=== PATIENT | male | born 2000 | race Caucasian/White ===

== ENCOUNTER 2024-04-24 19:19 | Emergency (ER) | payer SELFPAY ==
[2024-04-24] MEDS ORDERED: Fluorescein Opthalmic Strip ONE (19:34)
[2024-04-24] MEDS ORDERED: Tetracaine 0.5% PF 4 ML BOT ONE (19:34)
[2024-04-24] MEDS ORDERED: Boostrix 0.5 ML (Tdap) VIAL (>/=7 yrs of age) ONE (20:34)
== END 2024-04-24 20:53 | disposition home or self-care (01) ==
LOC: MADERS 19:19
DX: S05.01XA Injury of conjunctiva and corneal abrasion without foreign body, right eye, initial encounter (principal); Z23 Encounter for immunization; X58.XXXA Exposure to other specified factors, initial encounter; W45.8XXA Other foreign body or object entering through skin, initial encounter; Y93.E5 Activity, floor mopping and cleaning
CPT/HCPCS: 90471; 90715